=== PATIENT | female | born 1975 | race Caucasian/White ===

== ENCOUNTER 2016-12-10 05:50 | Day surgery (SDC) | payer BC ==
[2016-12-08 20:28] LABS: HEMOGLOBIN 11.2 g/dL (12.0-16.0)
--- NOTE | ~2016-12-10 | OP ---
Record Of Operation [facility] [address] [place] [address] NAME: OLINDA ACEVEDO : 75 STATUS : [place] [facility] [place]#: [id number] AGE: 41 ADM/REG DATE : 12/10/16 MR#: [id number] REPORT SERV DATE: 12/10/16 DICTATED BY: JOHN ALCOCER DATE: 12/10/16 REPORT STATUS : Draft TRANSCRIBED BY: EVERARDO DATE: 12/10/16 DATE OF PROCEDURE: 12/10/2016 PREPROCEDURE DIAGNOSIS: Crohn's disease with left groin lesion. POSTPROCEDURE DIAGNOSIS: Concern for hidradenitis versus granulosum. 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 PROCEDURE: Excision of left groin lesion measuring 4 x 1 cm. PROCEDURE IN DETAIL: The patient was taken to the operating room, induced under MAC anesthetic, prepped and draped in the usual sterile fashion. A TAP block solution was used to inject locally, a total of 4 mL. An elliptical incision was made around the lesion which appeared to be affecting several of the hair follicles. This was through the dermis and epidermis, and then this was elevated off the subcutaneous fat and sent en bloc to Pathology. Then, two skin flaps were raised using cautery, and the incision was closed with 3-0 Vicryl in interrupted fashion. There was a lesion which appeared to be a mole just external to the incision but it did have hair with some drainage and for this reason, it was removed simply by amputation. Then Mastisol, Steri-Strips, Telfa, and a Tegaderm were placed. She tolerated the procedure well. SOFIE/EVERARDO John Alcocer M.D. / [id number] CC: Larry Booth M.D. William Buchner, M.D. Dawn Beaulieu, MD
[~2016-12-10 05:50] MED LIST: ACET500CAP PO; IVVIBRA PO; MULTIVITAMI1 PO
== END 2016-12-10 12:34 | disposition home or self-care (01) ==
LOC: SDC 05:50
PROVIDERS: Surgery
PROC: 0HB7XZZ Excision of Abdomen Skin, External Approach (ICD-10-PCS; principal; 2016-12-10 06:45)
DX: D23.5 Other benign neoplasm of skin of trunk (principal); L73.2 Hidradenitis suppurativa; K50.90 Crohn's disease, unspecified, without complications; Z88.2 Allergy status to sulfonamides; Z88.8 Allergy status to other drugs, medicaments and biological substances; Z87.442 Personal history of urinary calculi; Z98.890 Other specified postprocedural states
CPT/HCPCS: 36415; 84703; 85014; 85018; 88305; J0690; J1885; J2250; J2370; J2405; J2795; J3010